=== PATIENT | male | born 1930 | race Two or more races ===

== ENCOUNTER 2018-10-21 06:06 | Day surgery (SDC) | payer OTHER ==
[~2018-10-21 06:06] MED LIST: LOVASTATIN10 MG PO; PENTOXIFYLLINE400 MG PO; TRAM1TAB98 PO; VASOTEC20 M1 PO
== END 2018-10-21 10:15 | disposition home or self-care (01) ==
LOC: CIR.AMB 06:06
DX: D12.4 Benign neoplasm of descending colon (principal); K64.8 Other hemorrhoids; K63.5 Polyp of colon